=== PATIENT | male | born 1980 | race Caucasian/White ===

== ENCOUNTER 2016-07-26 15:50 | Emergency (ER) | payer SELFPAY ==
[~2016-07-26] VITALS: Ht 180.3 cm; Wt 127.0 kg
[2016-07-26] MEDS ORDERED: HUMALOG R SUBCUT (17:41)
[2016-07-26] MEDS ORDERED: HUMALOG SUBCUT ×2 (17:42)
[2016-07-26] MEDS ORDERED: LEVEMIR FL100 UNIT/1 SUBCUT (17:43)
== END 2016-07-26 22:05 | disposition short-term general hospital (02) ==
LOC: ER 15:50
DX: R07.89 Other chest pain (principal); E11.9 Type 2 diabetes mellitus without complications; F17.210 Nicotine dependence, cigarettes, uncomplicated; Z79.4 Long term (current) use of insulin; Z88.5 Allergy status to narcotic agent; Z90.49 Acquired absence of other specified parts of digestive tract; Z79.899 Other long term (current) drug therapy
CPT/HCPCS: J1815